=== PATIENT | female | born 1965 ===

== ENCOUNTER → 2019-03-29 07:46 | Day surgery (SDC) | payer BC ==
--- NOTE | 2019-03-09 15:03 | HP ---
HISTORY AND PHYSICAL: DATE OF ADMISSION/SURGERY: 03/29/19 [facility] DATE OF OFFICE VISIT: 03/07/19 ATTENDING PHYSICIAN: Dr. Janna Kinsey.* (DICTATED BY ROXANA MON) PROCEDURE: Left wrist carpal tunnel release and distal radius repair and osteotomy. CHIEF COMPLAINT: Left wrist pain. HISTORY OF PRESENT ILLNESS: Caroline is a 53-year-old female who fell and suffered a fracture of her left distal radius in December of 2017. She was teated by an orthopedic doctor in [place]. She was placed in a cast for 4 weeks and then in a splint for 2 weeks and then she did have some physical therapy. The injury occurred when she fell off of her porch and she has had a persistent pain which is 5/10. She has been able to continue working. She also complains of numbness and tingling in her middle and index fingers since that injury. She notes that there is a deformity of wrist and thus the pain has been persistent. She denies any other associated symptoms. PAST MEDICAL HISTORY: Negative. PAST SURGICAL HISTORY: Tubal ligation 1988 and gastric bypass 2013. MEDICATIONS: Negative. ALLERGIES: No known drug allergies. FAMILY HISTORY: Diabetes and high blood pressure. SOCIAL HISTORY: She lives with her spouse. She works as an RN and clinical manger. She denies tobacco use. She consumes 4 alcoholic beverages per week and denies recreational drug use. REVIEW OF SYSTEMS: A complete 14-point review of systems was obtained. Other than HPI, it was positive for weight gain, fatigue, seasonal allergies. All other systems are negative and noncontributory including negative for prior problems with anesthesia. PHYSICAL EXAMINATION GENERAL: Well-developed, well-nourished 53-year-old female in no acute distress. Alert and oriented x3. Appropriate mood and affect. HEENT: Head is normocephalic, atraumatic. NECK: Supple. No palpable lymph nodes. LUNGS: Clear to auscultation bilaterally. No wheezes, rales, or rhonchi. CARDIAC: Regular rate and rhythm. S1, S2. No murmurs, rubs, or gallops. EXTREMITIES: Left upper extremity: She has no soft tissue swelling or bruising. She has an obvious deformity with prominence of the distal ulna. [place] with volar angulation of the radius. She can make a complete fist. She has significantly limited wrist flexion compared to the right wrist. She has full extension of the wrist. Full supination and pronation as she has decreased sensation in the median nerve distribution. Positive carpal compression test. Positive Tinel's. Sensation is decreased in the median nerve distribution. 2+ radial pulse. SKIN: Skin is intact without rashes or lesions. DIAGNOSTIC STUDIES: New x-rays are obtained today of the left wrist shows of malunion. The distal radius with apex volar angulation. Nerve conduction studies dated 07/13/17 showed mild carpal tunnel syndrome on the left. IMPRESSION: 1. Left distal radius malunion. 2. Left carpal tunnel syndrome. PLAN: She is scheduled to undergo left wrist distal radius corrective osteotomy with iliac crest bone graft and carpal tunnel release as scheduled on 03/29/[address] Kinsey. She will follow up in the office 10 to 14 days postoperatively. ROXANA MON [id number]/[facility] #: [id number] [facility] HOSPITALSvitlana
[~2019-03-29 07:46] MED LIST: Buffered Lidocaine 1% SYRIN* 1 ML/SYRINGE INTRADERM ONE; Bupivacaine 0.5% SDV PF* 30ML VIAL ONE; Dexamethasone IV* 4 MG/ML 1 ML (4 MG) IV SLOW PU ONE; Dexamethasone IV* 4 MG/ML 1 ML (4 MG) ONE; DiMENhydriNATE IV* 50 MG/ML VIAL IV PUSH PRN; DiMENhydriNATE IV* 50 MG/ML VIAL ONE; Famotidine IV* 10 MG/ML 2 ML (20 mg) IV ONE; Famotidine IV* 10 MG/ML 2 ML (20 mg) ONE; Gelfoam 12-7 ADSORBABL SPONGE* 1 EA SPONGE ONE; HYDROcodone/ACETAMIN 5-325 MG* 1 TAB ONE; HYDROcodone/ACETAMIN 5-325 MG* 1 TAB PO PRN; KETAMINE HCL* 50 MG/ML 10 ML VIAL ONE; Ketorolac INJ* 30 MG/ML 1 ML VIAL ONE; Lactated Ringers 1000 ML Bag* 1,000 ML IV SCH; Lidocaine 2% PF * 5 ML VIAL ONE; Midazolam* 1 MG/ML 2 ML VIAL (2 MG) ONE; Naloxone* 0.4 MG/ML 1 ML VIAL IV PRN; Ondansetron INJ* 2 MG/ML VIAL ONE; Propofol* 10 MG/ML 20 ML BTL ONE; ceFAZolin 2 GM PREMIX in ORs 2 GM/50 ML BAG ONE; fentaNYL* 50 MCG/ML 2 ML VIAL (100 MCG VIAL) ONE; oxyCODONE/Acetamin 5/325 MG* TAB PO PRN
[2019-03-29] MEDS: fentaNYL* 50 MCG/ML 2 ML VIAL (100 MCG VIAL) IV PRN ×5 (11:36→13:05)
--- NOTE | 2019-03-29 13:01 | OP ---
DATE OF OPERATION: 03/29/19 - [facility] DATE OF : 65 SURGEON: Janna Kinsey MD MANAGER EDITORIAL: ROXANA Song ANESTHESIA: General. PRE-OP DIAGNOSES: Left distal radius malunion and left carpal tunnel syndrome. POST-OP DIAGNOSES: Left distal radius malunion and left carpal tunnel syndrome. OPERATIVE PROCEDURE: Left carpal tunnel release and distal radius corrective osteotomy with an iliac crest bone graft. ESTIMATED BLOOD LOSS: Less than 10 mL. TOURNIQUET TIME: Was about 1-1/2 hours on the left upper extremity. DESCRIPTION OF PROCEDURE: The patient was brought to the operating room, was given a general anesthetic and placed in the supine position on the operating room table with a tourniquet around her left upper arm. The skin of her left upper extremity and her left hip area was prepped and draped in the usual sterile fashion. The hand and forearm were exsanguinated and the tourniquet elevated to 250 mmHg. A longitudinal incision was made in the palm in line with the right finger. We dissected through the subcutaneous tissue down to the transverse carpal ligament. The ligament was divided sharply with the knife and then more proximally with the scissors. The nerve was dissected free from the surrounding tissue and there was an area of moderate compression in the mid portion of the ligament. Next the incision was extended across the wrist crease in a zig-zag fashion and then more proximal overlying the flexor carpi radialis tendon. The FCR tendon sheath superficial and deep was incised longitudinally and then the FPL muscle and tendon were retracted ulnarly. The pronator quadratus was incised and subperiosteally dissected off of the distal radius. We dissected all the way around the distal radius and placed Hohmann retractors. I then secured the distal portion of a Synthes 2.4 variable angle plate with 2 screws to the distal fragment and in such an orientation so that when it was approximated to the proximal radius it corrected the apex volar and apex ulnar angulation of the malunion. Next a K-wire was driven through the radius just proximal to where I was going to make the osteotomy and it was drilled parallel to the joint surface. Its position was checked on the C-arm and indeed found to be parallel. I then made a saw cut with sagittal blade parallel to the K-wire at the area of the fracture which was at the metaphyseal diaphyseal junction. The plate was then secured proximally on the radius with 4 bicortical screws and this corrected the malunion. Its position was checked on the C-arm in the AP and lateral views and found to be satisfactory. Two additional screws were placed distally. There was a gap dorsally and radially and this was filled with bone graft obtained from the iliac crest. A longitudinal incision was made along the subcutaneous border of the ileac crest 2 cm posterior to the anterior superior iliac spine. We dissected through the subcutaneous tissue down to the periosteum. The periosteum was incised on the superior aspect of the pelvis and then Hohmann retractors were placed on either side of the lip of the iliac wing. A curved osteotome was used to gain access to the top of the iliac crest and then cancellous bone graft was obtained with a curette and packed in the defect of the radius osteotomy. The bone graft donor site was packed with Gelfoam and then the periosteum was reapproximated with 0 Vicryl suture. The subcutaneous tissue was closed with 2-0 Polysorb and the skin with skin jamilah after the wound was irrigated. A wrist wound was also irrigated. The pronator quadratus was repaired over the plate with 2-0 Vicryl suture. The FCR tendon sheath was repaired with 2-0 Vicryl suture in an interrupted fashion and then the skin edges were reapproximated with 4-0 nylon suture. The wrist wound was dressed with Xeroform, 4 x 4, Webril, and a volar splint. The bone graft donor site incision was dressed with a 4 x 4 and Tegaderm. The patient tolerated the procedure well, she was brought to the recovery room in good condition after awakening from general anesthesia. Prior to placement of the bandages, 30 cc total of Marcaine 0.5% were injected in the hip area and the wrist area. [id number]/[facility] #: [id number] [facility]ERSvitlana
[2019-03-29 13:28] VITALS: BP 145/61
== END | disposition home or self-care (01) ==
LOC: OREAST 07:46
PROVIDERS: ATTEND Orthopaedic Surgery
DX: S52.552P Other extraarticular fracture of lower end of left radius, subsequent encounter for closed fracture with malunion (principal); G56.02 Carpal tunnel syndrome, left upper limb; I10 Essential (primary) hypertension; Z95.1 Presence of aortocoronary bypass graft; W17.89XD Other fall from one level to another, subsequent encounter; Y92.008 Other place in unspecified non-institutional (private) residence as the place of occurrence of the external cause
CPT/HCPCS: 76000; A9270-GY; C1713; C1776; J0690; J1100; J1240; J1885; J2250; J2405; J2704; J3010; J3490